=== PATIENT | male | born 2000 | race Two or more races ===

== ENCOUNTER 2024-09-26 05:26 | Emergency (ER) | payer OTHER ==
[~2024-09-26] VITALS: Ht 175.3 cm; Wt 68.0 kg
[2024-09-26] MEDS ORDERED: LIDOCAINE 1% INJ 50 ML MDV IJ ONE (06:34)
[2024-09-26] MEDS ORDERED: LIDOCAINE HCL/MPF 1% 30 ML VIAL IJ ONE (06:40)
[2024-09-26] MEDS: LIDOCAINE HCL/PF 1% 30 ML VIAL IM ONE (06:56)
[2024-09-26] MEDS ORDERED: CLIN300C12 PO (07:24)
[2024-09-26] MEDS: BACI/NEOM/POLY B OINT PKT 1 UDPKT PACKET TP ONE (07:54)
[2024-09-26 07:56] VITALS: BP 118/80; TEMP 98.1; O2SAT 98
== END 2024-09-26 07:57 | disposition home or self-care (01) ==
LOC: ER 05:35
DX: L03.011 Cellulitis of right finger (principal); Z88.0 Allergy status to penicillin
CPT/HCPCS: 99283; 10060; J3490 ×3; A6403 ×2; A6407

== ENCOUNTER 2024-11-06 08:48 | Emergency (ER) | payer OTHER ==
[~2024-11-06] VITALS: Ht 175.3 cm; Wt 72.6 kg
[~2024-11-06 08:48] MED LIST: CLIN300C12 PO
[2024-11-06 08:55] VITALS: BP 109/74; TEMP 98.5
[2024-11-06] MEDS ORDERED: CLIN300C12 PO (09:00)
[2024-11-06] MEDS ORDERED: IBUP-1490 PO (09:00)
[2024-11-06 09:10] VITALS: O2SAT 99
[2024-11-07] MEDS ORDERED: MUPI22OI7 TP (07:46)
== END 2024-11-06 09:11 | disposition home or self-care (01) ==
LOC: ER 08:53
DX: L03.011 Cellulitis of right finger (principal); Z88.0 Allergy status to penicillin; Z79.2 Long term (current) use of antibiotics

== ENCOUNTER 2024-11-07 07:14 | Emergency (ER) | payer OTHER ==
[~2024-11-07] VITALS: Ht 175.3 cm; Wt 72.6 kg
[~2024-11-07 07:14] MED LIST changes: +IBUP-1490 PO
[2024-11-07 07:29] VITALS: BP 112/70; TEMP 98.4
[2024-11-07] MEDS ORDERED: MUPI22OI7 TP (07:46)
[2024-11-07] MEDS: LIDOCAINE 5% OINT 35.44 GM TUBE TP STA (07:47)
[2024-11-07 08:42] VITALS: O2SAT 99
== END 2024-11-07 08:42 | disposition home or self-care (01) ==
LOC: ER 07:27
DX: L03.012 Cellulitis of left finger (principal); Z88.0 Allergy status to penicillin
CPT/HCPCS: 99283; 10060; A6403

== ENCOUNTER 2025-02-19 21:14 | Emergency (ER) | payer OTHER ==
[~2025-02-19] VITALS: Ht 172.7 cm; Wt 72.6 kg
[~2025-02-19 21:14] MED LIST changes: +MUPI22OI7 TP
[2025-02-19] MEDS ORDERED: IBUPROFEN 400 MG TABLET ONE (22:25)
[2025-02-19] MEDS: IBUPROFEN 400 MG TABLET PO ONE (22:47)
[2025-02-19 23:25] VITALS: BP 113/64; TEMP 98.1; O2SAT 98
== END 2025-02-19 23:25 | disposition home or self-care (01) ==
LOC: ER 21:20
DX: R51.9 Headache, unspecified (principal); F07.81 Postconcussional syndrome; Z88.0 Allergy status to penicillin
CPT/HCPCS: 70450-TC